=== PATIENT | female | born 1985 | race Caucasian/White ===

== ENCOUNTER 2021-12-24 21:46 | Outpatient (CLI) | payer OTHER ==
[~2021-12-24] VITALS: Ht 162.6 cm; Wt 57.6 kg
[2021-12-24] MEDS ORDERED: VALACYCLOVIR500 MG (22:35)
[2021-12-24] MEDS ORDERED: PRENATAL + DHA1 EAC1 (22:35)
== END 2021-12-25 13:03 | disposition designated cancer center or children's hospital (05) ==
LOC: OBS/DEL 21:46 → LDR 12-25 00:45 → OBS/DEL 12-25 02:10 → LDR 12-25 02:11 → OBS/DEL 12-25 02:11 → LDR 12-25 17:12
PROVIDERS: ATTEND Obstetrics & Gynecology
DX: O60.02 Preterm labor without delivery, second trimester (principal); Z3A.23 23 weeks gestation of pregnancy